=== PATIENT | female | born 1985 | race Asian ===

== ENCOUNTER 2018-01-30 14:24 | Emergency (ER) | payer OTHER ==
[~2018-01-30] VITALS: Ht 152.4 cm; Wt 48.1 kg
[2018-01-30 14:29] VITALS: BP 111/77
[2018-01-30] MEDS ORDERED: Hydrogen Peroxide 473ml Bottle TOPIC ONE ×2 (15:11→15:15)
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
[2018-01-30] MEDS ORDERED: Tetracaine 0.5% Opth 4ml Soln LEFT EYE ONE (15:45)
[2018-01-30] MEDS ORDERED: Fluorescein Strips LEFT EYE ONE (15:45)
[2018-01-30] MEDS ORDERED: Tylenol #3 tab (300mg/30mg) ORAL ONE (16:15)
[2018-01-30] MEDS ORDERED: Morgan Lens TOPIC ONE (16:15)
[2018-01-30 17:33] VITALS: BP 118/76
[2018-01-30] MEDS ORDERED: Lidocaine 1% 10mg/ml/Epi 0.005mg/ml 30ml vial INJ ONE (17:45)
[2018-01-30] MEDS ORDERED: Bacitracin Oint UD TOPIC ONE (17:45)
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
[2018-01-30] MEDS ORDERED: ROBAXIN500 MG PO (18:29)
[2018-01-30] MEDS ORDERED: ACETAMINOPHEN-1 EAC1 ORAL (18:29)
[2018-01-30] MEDS ORDERED: BACITRACIN-P28.35 GM TP (18:29)
[2018-01-30] MEDS ORDERED: AUGMENTIN 875-1 EAC1 ORAL (18:29)
[2018-01-30 18:44] VITALS: BP 118/76
== END 2018-01-30 18:45 | disposition home or self-care (01) ==
LOC: EDBD 14:24 → EMR 15:01
DX: S02.2XXB Fracture of nasal bones, initial encounter for open fracture (principal); S01.511A Laceration without foreign body of lip, initial encounter; V43.52XA Car driver injured in collision with other type car in traffic accident, initial encounter; Y92.410 Unspecified street and highway as the place of occurrence of the external cause
CPT/HCPCS: 70486; 99284